=== PATIENT | female | born 1950 | race Caucasian/White ===

== ENCOUNTER 2017-07-14 16:21 | Emergency (ER) | payer MEDICARE, MEDICAID ==
[2017-07-14 20:58] LABS: BASOPHIL % 0.6 % (0-2); PLATELET COUNT 247 x10^3mcL (130-400)
[2017-07-14 21:01] LABS: RED CELL DISTRIBUTION WIDTH 15.5 % (11.5-14.5)
[2017-07-14 21:03] LABS: CALCIUM 9.5 mg/dL (8.5-10.1); CARBON DIOXIDE 27.4 mmol/L (21-32); CHLORIDE SERUM 103 mmol/L (98-107); CREATININE SERUM 0.7 mg/dL (0.6-1.0); GFR1 > 60 mL/min; GLUCOSE SERUM 82 mg/dL (74-106); SODIUM SERUM 141 mmol/L (136-145)
[2017-07-14 21:08] LABS: ALBUMIN 3.8 g/dL (3.4-5.0); ALKALINE PHOSPHATASE 51 U/L (46-116); ALT/SGPT 64 U/L (14-59); AST/SGOT 60 U/L (15-37); BILIRUBIN TOTAL 0.47 mg/dL (0.20-1.00); TOTAL PROTEIN, SERUM 8.1 g/dL (6.4-8.2)
[2017-07-14 21:17] LABS: UA SPECIFIC GRAVITY <=1.005 (1.005-1.035); microscopic required? YES; urine erythrocyte NEGATIVE (NEGATIVE)
[2017-07-14 22:47] VITALS: BP 115/77
== END 2017-07-14 22:47 | disposition home or self-care (01) ==
LOC: ED 16:21
PROVIDERS: Emergency Medicine
DX: R59.0 Localized enlarged lymph nodes (principal); E11.40 Type 2 diabetes mellitus with diabetic neuropathy, unspecified; Z79.84 Long term (current) use of oral hypoglycemic drugs; Z79.899 Other long term (current) drug therapy
CPT/HCPCS: 36415

== ENCOUNTER 2017-09-12 16:26 | Emergency (ER) | payer OTHER, MEDICAID ==
[~2017-09-12] VITALS: Ht 170.2 cm; Wt 72.6 kg
[2017-09-12 19:32] LABS: BASOPHIL % 0.2 % (0-2); PLATELET COUNT 253 x10^3mcL (130-400)
[2017-09-12 19:39] LABS: RED CELL DISTRIBUTION WIDTH 15.4 % (11.5-14.5)
[2017-09-12 19:49] LABS: CALCIUM 8.9 mg/dL (8.5-10.1); CARBON DIOXIDE 23.6 mmol/L (21-32); CHLORIDE SERUM 100 mmol/L (98-107); CREATININE SERUM 0.9 mg/dL (0.6-1.0); GFR1 > 60 mL/min; GLUCOSE SERUM 246 mg/dL (74-106); POTASSIUM SERUM 4.2 mmol/L (3.5-5.1); SODIUM SERUM 135 mmol/L (136-145)
[2017-09-12 19:53] LABS: ALBUMIN 3.8 g/dL (3.4-5.0); ALKALINE PHOSPHATASE 38 U/L (46-116); ALT/SGPT 68 U/L (14-59); AST/SGOT 41 U/L (15-37); BILIRUBIN TOTAL 0.41 mg/dL (0.20-1.00); CHOLESTEROL 178 mg/dL (<200); CHOLESTEROL/HDL RATIO 3.8; HDL CHOLESTEROL 47 mg/dL (40-60); LIPASE 208 IU/L (73-393); T3 TOTAL 1.13 ng/mL; TOTAL PROTEIN, SERUM 7.3 g/dL (6.4-8.2); TRIGLYCERIDES 89 mg/dL (<150)
[2017-09-12 20:12] LABS: FREE T4 0.99 ng/dL (0.76-1.46); FREE THYROXINE INDEX 2.9 ug/dL (1.4-4.5); T4(THYROXINE) 8.7 ug/dL (4.7-13.3)
[2017-09-12 21:15] VITALS: BP 99/66
== END 2017-09-12 21:15 | disposition home or self-care (01) ==
LOC: ED 16:26
PROVIDERS: Specialist
DX: E11.649 Type 2 diabetes mellitus with hypoglycemia without coma (principal); D72.829 Elevated white blood cell count, unspecified; E11.40 Type 2 diabetes mellitus with diabetic neuropathy, unspecified
CPT/HCPCS: 82962; 83880; 84439; J7030

== ENCOUNTER 2018-03-26 10:14 | Emergency (ER) | payer OTHER ==
[~2018-03-26] VITALS: Ht 165.1 cm; Wt 72.1 kg
[~2018-03-26 10:14] MED LIST: ALENDRONATE SOD70 M2 PO; AMA1 PO; ASPIR 8181 MG PO; AZITHROMYCIN250 M1 PO; COZAAR100 MG PO; D3-50001 TAB PO; HYDROCHLOROTH12.5 M2 PO; KEFLEX500 M1 PO; LAC PO; LOP600 PO; LYRICA75 M1 PO; METFORMIN HYD1000 M2 PO; NORCO1 TA2 PO; PREDNISONE2.5 MG PO; PRILOSEC OTC20 M1 PO; SIMVASTATIN20 M1 PO
[2018-03-26 10:18] VITALS: Ht 165.1 cm; Wt 72.1 kg
[2018-03-26 14:12] VITALS: BP 128/81
== END 2018-03-26 14:44 | disposition home or self-care (01) ==
LOC: ED 10:14
DX: R60.0 Localized edema (principal); E13.42 Other specified diabetes mellitus with diabetic polyneuropathy; E78.00 Pure hypercholesterolemia, unspecified; I10 Essential (primary) hypertension; Z72.0 Tobacco use
CPT/HCPCS: 82962

== ENCOUNTER 2018-09-20 10:27 | Inpatient (IN) | payer OTHER ==
[~2018-09-20] VITALS: Ht 162.6 cm; Wt 73.5 kg
[2018-09-20 10:33] VITALS: Ht 162.6 cm; Wt 73.5 kg
[2018-09-20 11:11] LABS: BASOPHIL % 0.5 % (0-2); PLATELET COUNT 278 x10^3mcL (130-400)
[2018-09-20] MEDS ORDERED: FUROSEMIDE20 MG PO (11:20)
[2018-09-20] MEDS ORDERED: TRADJENTA5 M1 PO (11:20)
[2018-09-20 11:22] LABS: CALCIUM 8.7 mg/dL (8.5-10.1); CARBON DIOXIDE 27.9 mmol/L (21-32); POTASSIUM SERUM 3.8 mmol/L (3.5-5.1)
[2018-09-20 11:35] LABS: BILIRUBIN TOTAL 0.35 mg/dL (0.20-1.00)
[2018-09-20 12:54] VITALS: BP 147/68
[2018-09-20 13:33] LABS: CHOLESTEROL/HDL RATIO 4.3; MAGNESIUM 2.2 mg/dL (1.8-2.4); PHOSPHOROUS 2.3 mg/dL (2.5-4.9)
[2018-09-20 13:36] LABS: T3 TOTAL 1.76 ng/mL
[2018-09-20 13:42] LABS: FREE T4 1.11 ng/dL (0.76-1.46); FREE THYROXINE INDEX 2.7 ug/dL (1.4-4.5); T4(THYROXINE) 8.7 ug/dL (4.7-13.3)
[2018-09-20 17:10] VITALS: BP 139/67
[2018-09-20 21:31] VITALS: BP 124/61
[2018-09-21 04:46] VITALS: BP 144/70
[2018-09-21 06:23] LABS: BASOPHIL % 0.8 % (0-2); PLATELET COUNT 264 x10^3mcL (130-400)
[2018-09-21 06:42] LABS: RED CELL DISTRIBUTION WIDTH 17.2 % (11.5-14.5)
[2018-09-21 06:53] LABS: CALCIUM 8.8 mg/dL (8.5-10.1); CARBON DIOXIDE 27.1 mmol/L (21-32); CHLORIDE SERUM 105 mmol/L (98-107); CREATININE SERUM 0.7 mg/dL (0.6-1.0); GFR1 > 60 mL/min; GLUCOSE SERUM 114 mg/dL (74-106); PHOSPHOROUS 3.6 mg/dL (2.5-4.9); POTASSIUM SERUM 4.2 mmol/L (3.5-5.1); SODIUM SERUM 139 mmol/L (136-145)
[2018-09-21 09:30] VITALS: BP 133/67
[2018-09-21 11:05] LABS: UA SPECIFIC GRAVITY >=1.030 (1.005-1.035); microscopic required? YES; urine erythrocyte NEGATIVE (NEGATIVE)
[2018-09-21 11:18] LABS: AMPHETAMINE QUAL UR NONE DETECTED (See below)
[2018-09-21 13:55] VITALS: BP 135/64
[2018-09-21] MEDS ORDERED: LEV500 PO (16:40)
[2018-09-21] MEDS ORDERED: LAC PO (17:04)
== END 2018-09-21 17:30 | disposition home or self-care (01) | DRG 205 ==
LOC: ED 10:27 → DU 11:48
PROVIDERS: Emergency Medicine; Internal Medicine
DX: M94.0 Chondrocostal junction syndrome [Tietze] (principal); N17.0 Acute kidney failure with tubular necrosis; D68.69 Other thrombophilia; N39.0 Urinary tract infection, site not specified; G90.9 Disorder of the autonomic nervous system, unspecified; E83.39 Other disorders of phosphorus metabolism; R55 Syncope and collapse; E11.59 Type 2 diabetes mellitus with other circulatory complications; I10 Essential (primary) hypertension; E78.5 Hyperlipidemia, unspecified; Z79.82 Long term (current) use of aspirin; Z79.84 Long term (current) use of oral hypoglycemic drugs; Z87.891 Personal history of nicotine dependence; Z68.27 Body mass index [BMI] 27.0-27.9, adult
CPT/HCPCS: 82962; 83880; 84439; 85378; J1644; J7030; Q0092

== ENCOUNTER 2019-07-12 10:00 | Inpatient (IN) | payer OTHER ==
[~2019-07-12] VITALS: Ht 160 cm; Wt 76.7 kg
[~2019-07-12 10:00] MED LIST changes: +FUROSEMIDE20 MG PO; +LEV500 PO; +TRADJENTA5 M1 PO
[2019-07-12 10:08] VITALS: Ht 160 cm; Wt 76.7 kg
--- NOTE | 2019-07-12 10:22 | NUR ---
PT BROUGHT IN BY DAUGHTER WITH C/O DIARRHEA AND R ARM PAIN X4 DAYS. AT BEDSIDE PT IS AAOX4. RESPS E/U. SKIN IS PINK, WARM AND DRY. PERRLA. PT PLACED ON MONITOR. BED RAILS UP X1 FOR SAFETY. PT ORIENTED TO ROOM, USE OF CALL PURCELL AND BED IN LOWEST POSITION. PT IS CALM AND COOPERATIVE. PT AMBULATED FROM LOBBY TO ED WITH STEADY GAIT. PT AWAITING MSE.
--- NOTE | 2019-07-12 11:15 | NUR ---
PT ASKED TO GO TO RESTROOM. PT AMBULATED TO RESTROOM AND BACK WITH NO ASSIST AND STEADY GAIT. PT SPEAKING IN FULL SENTANCES. NO NEUROLOGICAL DEFICITS NOTED AT THIS MOMENT.
[2019-07-12 11:31] LABS: BASOPHIL % 0.6 % (0-2); PLATELET COUNT 323 x10^3mcL (130-400)
[2019-07-12 11:32] LABS: RED CELL DISTRIBUTION WIDTH 17.7 % (11.5-14.5)
--- NOTE | 2019-07-12 12:07 | NUR ---
PT RESTING IN A POSITION OF COMFORFT. PT AAOX1. RESPS EVEN AND UNLABORED. CALL LIGHT WITHIN REACH. BED IN LOW POSITION WITH SIDE RAILS UP X2. APPEARS TO BE NO DISTRESS AT THIS TIME. NO CHANGE IN PT STATUS. WILL CONITINUE TO MONITOR. DIXIE AT BEDSIDE.
[2019-07-12 12:18] LABS: ALKALINE PHOSPHATASE 59 U/L (46-116); ALT/SGPT 26 U/L (14-59); AST/SGOT 23 U/L (15-37); BILIRUBIN TOTAL 0.4 mg/dL (0.20-1.00); CALCIUM 8.3 mg/dL (8.5-10.1); CARBON DIOXIDE 20.4 mmol/L (21-32); CHLORIDE SERUM 81 mmol/L (98-107); CREATININE SERUM 0.7 mg/dL (0.6-1.0); GFR1 > 60 mL/min; GLUCOSE SERUM 150 mg/dL (74-106); LIPASE 90 IU/L (73-393); POTASSIUM SERUM 4.2 mmol/L (3.5-5.1); TOTAL PROTEIN, SERUM 7.3 g/dL (6.4-8.2)
[2019-07-12 12:22] LABS: SODIUM SERUM 116 mmol/L (136-145)
--- NOTE | 2019-07-12 12:22 | NUR ---
I RECEIVED A CALL FROM GUSTAVO REGARDING THIS PT NA LEVEL [address] DAWSON
--- NOTE | 2019-07-12 13:01 | NUR ---
PT TRANSFERED TO CT VIA GURNEY IN STABLE CONDITION. AAOX4, RESPS E/U, SKIN IS PINK WARM AND DRY.
--- NOTE | 2019-07-12 13:05 | NUR ---
HAND-OFF REPORT TO ISAI LEES TO ASSUME CARE
--- NOTE | 2019-07-12 13:20 | NUR ---
PT RETURNED FROM CT. AWAKE AND ALERT, RESP E/U, NAD NOTED. DAUGHTER REMAINS AT BEDSIDE.
--- NOTE | 2019-07-12 14:38 | NUR ---
ISAI LEES AMBULATED PT TO ED RESTROOM. AMBULATED WITH STEADY GAIT, NAD NOTED.
--- NOTE | 2019-07-12 15:16 | NUR ---
DR DAWSON AT BEDSIDE TO SPEAK WITH PT AND DAUGHTER REGARDING PLAN OF CARE FOR ADMISSION.
[2019-07-12] MEDS ORDERED: COZAAR100 MG PO (15:26)
[2019-07-12] MEDS ORDERED: NEU300 PO ×2 (15:27→15:28)
[2019-07-12] MEDS ORDERED: PENTOXIFYL XR400 M1 PO (15:28)
[2019-07-12] MEDS ORDERED: LOP600 PO (15:29)
[2019-07-12] MEDS ORDERED: HCTZ/LISINOPRIL1 TAB PO (15:30)
[2019-07-12] MEDS ORDERED: LOVASTATIN20 MG PO (15:31)
--- NOTE | 2019-07-12 16:30 | NUR ---
PT SITTING UP IN GURNEY COMFORTABLY. RESP E/U, NAD NOTED. CALL LIGHT IN REACH.
--- NOTE | 2019-07-12 16:36 | NUR ---
IV MAINTENANCE FLUIDS INITIATED PER ORDER, PT VERBALIZED UNDERSTANDING OF MEDICATION PRIOR TO ADMINISTRATION. PT CURRENTLY REPORTING HEADACHE PAIN. MADE AWARE.
--- NOTE | 2019-07-12 18:05 | NUR ---
ATTEMPTED TO CALL REPORT TO [employer]. PER SENIOR RADIATION THERAPIST, WILL HAVE HER CALL BACK.
--- NOTE | 2019-07-12 18:23 | NUR ---
RECEIVED REPORT FROM CHRISTEL ALEX IN ED. AWAITING PATIENT ARRIVAL TO FLOOR.
--- NOTE | 2019-07-12 18:25 | NUR ---
REPORT CALLED TO ISAI DOBSON TO ASSUME CARE FOR PT.
--- NOTE | 2019-07-12 18:39 | NUR ---
RECEIVED PT VIA GUERNEY FROM E/D, ACCOMPANIED BY TRANSPORTER. PT A/A/O X 4, CALM, COOPERATIVE; C/O INTERMITTENT THROBBING H/A /10; ON SEIZURE PRECAUTIONS FOR NA+ 116; WEARS GLASSES (W/ PT). GENERALIZED WEAKNESS (R > L), ABLE TO AMBULATE BY HERSELF; FALL RISK PROTOCOL IN PLACE; NOTED MISSING THUMB (SINCE 15Y AGO). DENIES CHEST PAIN OR DISCOMFORT AT THIS TIME, C/O MILD DIZZINESS. BRYN RADIAL AND PEDAL PULSES PRESENT, +1 PITTING EDEMA TO BLE, CAP REFILL < 3 SECS, SCD BY BEDSIDE. NO ACUTE RESPIRATORY DISTRESS NOTED. ABD SOFT, ROUND, NON-TENDER, NORMOACTIVE BOWEL SOUNDS X 4 QUADS, LAST BM 07/12/19, DIARRHEA; PT W/ FULL UPPER AND PARTIAL LOWER DENTURES. IV SITE RH 20G, CDI. ORIENTED PT TO ROOM, BED CONTROLS, CALL LIGHT SYSTEM. SIDE RAILS UP X 2, BED IN LOW POSITION. WILL ENDORSE TO ISAI DOBSON.
--- NOTE | 2019-07-12 18:39 | NUR ---
RECEIVED PATIENT FROM ED VIA GUERNEY. PATIENT AMBULATED TO BED ALONE. GAIT STEADY. VITALS TAKEN AND STABLE (SEE DOCUMENTATION). PT ON ROOM AIR WITH NO DISTRESS NOTED. ORIENTED PATIENT TO ROOM AND EDUCATED ON THE USE OF CALL LIGHT FOR ASSISTANCE. IV TO RT HAND IS PATENT AND INTACT. NO REDNESS OR PAIN. PT C/O HEADACHE 06/30 UNRELIEVED BY MOTRIN GIVEN IN ED. ALL QUESTIONS AND CONCERNS ADDRESSED.
[2019-07-12 19:04] LABS: CHOLESTEROL/HDL RATIO 4.5
[2019-07-12 19:10] LABS: T3 TOTAL 0.95 ng/mL
[2019-07-12 19:14] LABS: FREE T4 1.27 ng/dL (0.76-1.46); FREE THYROXINE INDEX 3.5 ug/dL (1.4-4.5); T4(THYROXINE) 10.4 ug/dL (4.7-13.3)
[2019-07-12 19:58] LABS: CARBON DIOXIDE 23.4 mmol/L (21-32); CHLORIDE SERUM 86 mmol/L (98-107); CREATININE SERUM 0.7 mg/dL (0.6-1.0); GFR1 > 60 mL/min; GLUCOSE SERUM 110 mg/dL (74-106); POTASSIUM SERUM 3.5 mmol/L (3.5-5.1)
--- NOTE | 2019-07-12 19:59 | NUR ---
ENDORSED ALL CARE TO RESOURCE NURSE
[2019-07-12 20:02] LABS: SODIUM SERUM 122 mmol/L (136-145)
[2019-07-12 20:08] VITALS: BP 146/67
[2019-07-12 21:02] VITALS: BP 126/56
--- NOTE | 2019-07-12 22:31 | NUR ---
Awake and verbally responsive. No respiratory distress noted on room air. c/o headache, tylenol given as ordered with relief. Kept comfortable. Call light within reach. Will cont.to monitor.
--- NOTE | 2019-07-13 04:24 | NUR ---
Afebrile. No significant change in condition noted. Denies pain. In no apparent distress.
[2019-07-13 05:30] VITALS: BP 116/58
[2019-07-13 07:14] LABS: CALCIUM 7.7 mg/dL (8.5-10.1); CARBON DIOXIDE 24.3 mmol/L (21-32); CHLORIDE SERUM 91 mmol/L (98-107); CREATININE SERUM 0.7 mg/dL (0.6-1.0); GFR1 > 60 mL/min; GLUCOSE SERUM 128 mg/dL (74-106); PHOSPHOROUS 3.2 mg/dL (2.5-4.9); POTASSIUM SERUM 3.6 mmol/L (3.5-5.1); SODIUM SERUM 126 mmol/L (136-145)
[2019-07-13 07:21] LABS: BASOPHIL % 0.7 % (0-2); PLATELET COUNT 298 x10^3mcL (130-400)
--- NOTE | 2019-07-13 07:30 | NUR ---
RECEIVED PT FROM S[employer]VERWARE CLEANER. PT AWAKE, ALERT. A/OX4. PT ON ROOM AIR WITH NO RESP DISTRESS NOTED. LUNGS CTA. IV ACCESS RH CDI INFUSING NS AT 100ML/HR. PERIPHERAL PULSES PALPABLE, NO EDEMA NOTED. PT NOTED TO HAVE GENERALIZED WEAKNESS. PT DENIES ANY PAIN, HEADACHE OR CHEST PAIN AT THIS TIME. SAFETY MEASURES IN PLACE, BED LOW AND LOCKED. CALL LIGHT WITHIN REACH.
[2019-07-13 08:30] VITALS: BP 105/46
[2019-07-13 10:26] LABS: rbc morphology (normal/abnorm) ABNORMAL (NORMAL)
--- NOTE | 2019-07-13 12:47 | NUR ---
PT COMPLAINING OF SLIGHT HEADACHE. PT DOES NOT WANT TYLENOL OR NORCO FOR PAIN. PT PREFERS MOTRIN. DR JOEL CHAU.
--- NOTE | 2019-07-13 13:09 | NUR ---
MOTRIN ADMINISTERED FOR HEADACHE 01/28. PT STATES PAIN IS "NOT TOO MUCH". FAMILY AT BEDSIDE. WILL MONITOR.
--- NOTE | 2019-07-13 14:40 | NUR ---
PT RESTING WITH NO DISCOMFORT NOTED. PT REPORTS RELIEF AFTER MOTRIN ADMINISTRATION. PT IN BED KNITTING. WILL MONITOR.
--- NOTE | 2019-07-13 16:00 | NUR ---
ALL NEEDS MET AT THIS TIME. FAMILY AT BEDSIDE.
[2019-07-13 16:29] LABS: CALCIUM 8.6 mg/dL (8.5-10.1); CARBON DIOXIDE 21.3 mmol/L (21-32); CHLORIDE SERUM 97 mmol/L (98-107); CREATININE SERUM 0.9 mg/dL (0.6-1.0); GFR1 > 60 mL/min; GLUCOSE SERUM 123 mg/dL (74-106); POTASSIUM SERUM 4.1 mmol/L (3.5-5.1); SODIUM SERUM 132 mmol/L (136-145)
[2019-07-13 16:38] VITALS: BP 106/54
--- NOTE | 2019-07-13 18:25 | NUR ---
PT STABLE AT THIS TIME. ALL NEEDS MET THROUGHOUT SHIFT. WILL CONTINUE TO MONITOR AND ENDORSE CARE TO GLASS INSPECTOR.
--- NOTE | 2019-07-13 19:35 | NUR ---
RECEIVED REPORT FROM AM NURSE. PT LAYING DOWN IN BED WITH FAMILY AT BEDSIDE. PT AAOX4, FOLLOW COMMANDS. ABLE TO MAKE NEEDS KNOWN. MED-LIBBY. DENIES CP/PRESSURE AT THIS TIME. PALPABLE PULSES TO BLE. TRACE EDEMA TO LLE NOTED. LUNG SOUNDS CTA. BREATHING EVEN AND UNLABORED ON RA. NO ACUTE DISTRES NOTED. NO SOB NOTED. ABD SOFT AND NONDISTENDED. ACTIVE BS X4 QUAD. DENIES N/V/D. VOIDS FREELY BRP. GENERALIZED WEAKNESS. AMBULATORY. IV TO RH INFUSING NS AT 50ML/HR. SITE FREE FROM REDNESS AND SWELLING. BED AT LOWEST SETTING. SIDE RAILS X2 UP. CALL LIGHT WITHING REACH. WILL CONTINUE TO MONITOR.
[2019-07-13 22:28] VITALS: BP 136/50
[2019-07-13 23:31] LABS: UA SPECIFIC GRAVITY <=1.005 (1.005-1.035); microscopic required? YES; urine erythrocyte NEGATIVE (NEGATIVE)
--- NOTE | 2019-07-14 00:11 | NUR ---
PT LAYIND DOWN IN BED WITH EYES CLOSED. BREATHING EVEN AND UNLABORED ON RA. NO ACUTE DISTRESS NOTED. BED AT LOWEST SETTING. SIDE RAILS X2 UP. CALL LIGHT WITHING REACH.
--- NOTE | 2019-07-14 00:58 | NUR ---
UA CAME BACK POSITIVE. DR YUN MADE AWARE. NO NEW ORDERS RECEIVED.
--- NOTE | 2019-07-14 05:11 | NUR ---
PT SLEPT AT INTERVALS THROGHOUT THE NIGHT. BREATHING EVEN AND UNLABORED ON RA. NO ACUTE DISTRESS NOTED. NO SIGNIFICANT CHANGE DURING SHIFT. ALL NEEDS ASSESSED AND ATTENDED TO. IV TO RH INFUSING NS AT 50 ML/HR. SITE FREE FROM REDNESS AND SWELLING. BED AT LOWEST SETTING. SIDE RAILS X2 UP. CALL LIGHT WITHING REACH. WILL ENDORSE CARE TO AM NURSE.
[2019-07-14 05:49] VITALS: BP 126/48
[2019-07-14 07:00] LABS: PLATELET COUNT 364 x10^3mcL (130-400)
[2019-07-14 07:07] LABS: CALCIUM 8.9 mg/dL (8.5-10.1); CARBON DIOXIDE 22.7 mmol/L (21-32); CHLORIDE SERUM 99 mmol/L (98-107); CREATININE SERUM 0.8 mg/dL (0.6-1.0); GFR1 > 60 mL/min; GLUCOSE SERUM 130 mg/dL (74-106); MAGNESIUM 2.3 mg/dL (1.8-2.4); PHOSPHOROUS 3.9 mg/dL (2.5-4.9); POTASSIUM SERUM 3.8 mmol/L (3.5-5.1); SODIUM SERUM 137 mmol/L (136-145)
[2019-07-14 07:29] LABS: RED CELL DISTRIBUTION WIDTH 18.1 % (11.5-14.5)
--- NOTE | 2019-07-14 07:30 | NUR ---
ENDORSED CARE TO ISAI MCNAMARA.
--- NOTE | 2019-07-14 07:43 | NUR ---
A+OX4, NO RESPRIATORY DISTRESS NOTED, MEDSURG, PULSES MODERATEA AND EQUAL BRYN, EDEMA LLE, LUNG SOUNDS CTA, TOELRATING RA, BOWEL SOUNDS ACTIVE, VOIDING FREELY, GENERALIZED WEAKNESS, AMBULATORY, SKIN INTACT, IV IN R HAND WITH NS @ 80 ML/HR, SITE WNL.
[2019-07-14 09:13] VITALS: BP 119/53
--- NOTE | 2019-07-14 09:17 | NUR ---
PT RESTING IN BED, NO RESPRIATORY DISTRESS NOTED, DENIES PAIN, DAUGHTER AT BEDSIDE, CALL LIGHT WITHIN REACH.
--- NOTE | 2019-07-14 11:57 | NUR ---
PT RESTING IN BED, NO RESPIRATORY DISTRESS NOTED, DENIES PAIN, CALL LIGHT WITHIN REACH.
[2019-07-14 12:43] VITALS: BP 117/60
--- NOTE | 2019-07-14 13:05 | NUR ---
Initial Nutrition Assessment: Maru Palencia [id number] Dx: Abdominal pain, diarrhea and hyponatremia PMHx: HTN,DM,Hyperlipidemia and Neuropathy PSHx: Left groin abscess I and D Labs: (07/14) BH, H/H:11.1/34L, A1c:8.5 Meds: Aspirin, Cozaar, Fosamax, Humulin, Lopid, Neurontin, [place], NS IV, Tylenol, Vitamin D, Zofran Diet: CCHO PO Intake: (07/13) B:20% L:20% D:90% (07/14) B:100% Ht: 63in, 5'3" Wt: 169#, 76.657kg BMI:29.9kg/m2 (overweight) Bed scale: unable to weigh due to pt sitting up in a chair eating lunch IBW:115#, 52kg %IBW:147% UBW: 169# per pt Age: 69 y/o female Food Allergies: NKFA Skin:intact Eloy: 19 Edema: None GI:loose stools per RN assesment 07/14. Last BM: 07/13 Nursing Trigger: N/V/D>3days Per H&P, presented to the ED with c/o diarrhea for the past week, with reported episodes of loose stools between 6-7x/day. Pt with reported decreased intake of solid food for the past week but drank gatorade. Per progress note 07/13, sodium 126. NS changed from 100ml/hr to 50ml/hr. CBC ordered: pending. Pt reports to feeling better with no loose stools overnight. Pt wanted to go teresita but explained risk of going home with low Na. Pt agreed to stay. During visit, observed patient siting up in a chair eating her lunch. Pt's son helped translate. Pt reports to having a good appetite with some loose stools, but improved as compared to the previous day. Problem with: N/V/C: no D: loose stools, improving per pt Problems with: Chewing/Swallowing: No Current appetite: Good Recent wt change:no %wt change:0% Vitamin/Supplement use: No Special diet at home: regular Physical activity:no Nutrition education given (specify specific nutrition education and handout given): High fiber nutrition therapy in Bahamian. Went over what foods to include when yo u have diarrhea and importance of staying hydrated. Food-drug interactions? [place] Education given: verbal diet education on how pain medication can cause constipation Estimated Nutritional Needs Based on ideal body weight 52kg Energy: 1300-1560kcal/d (25-30kcal/kg for maintenance) Protein:52-62g/d (1-1.2g/kg for geriatric maintenanc) Fluid:1560-1820ml/d (30-35ml/kg for diarrhea) or per doctor Nutrition Diagnosis 1. Altered GI function related to gastroenteritis as evidenced by loose stools. 2. Altered nutrition related labs related to endocrine dysfunction as evidenced by A1c:8.5. Intervention 1. Recommend continue with CCHO diet. Monitor/Evaluate Goal: PO intake at least 75% of estimated needs Monitor: PO intake, Labs, GI function F/U in 3-5 days as moderate risk:07/17-
--- NOTE | 2019-07-14 13:07 | NUR ---
1. Recommend continue with CCHO diet.
--- NOTE | 2019-07-14 13:35 | NUR ---
PT SITTING IN CHAIR AT BEDSIDE, NO RESPRIATORY DISTRESS NOTED, DENIES PAIN, DENIES NAUSEA, CALL LIGHT WITHIN REACH. FAMILY AT BEDSIDE.
[2019-07-14 15:05] VITALS: BP 117/60
--- NOTE | 2019-07-14 15:53 | NUR ---
PT AND SON GIVEN DC INSTRUCTIONS, VERBALIZED UNDERSTANDING, IV REMOVED FROM R HAND WITH CATHETER INTACT, PT OFF UNIT AMBULATING INDEPENDENTLY WITH ALL BELONGINGS ESCORTED BY DEPUTY SHERIFF/INVESTIGATOR AND SON.
== END 2019-07-14 15:51 | disposition home or self-care (01) | DRG 392 ==
LOC: ED 10:00 → MU 17:01
PROVIDERS: Emergency Medicine; ADMIT General Practice
DX: K52.9 Noninfective gastroenteritis and colitis, unspecified (principal); E87.1 Hypo-osmolality and hyponatremia; E11.65 Type 2 diabetes mellitus with hyperglycemia; E78.5 Hyperlipidemia, unspecified; D50.9 Iron deficiency anemia, unspecified; Z79.82 Long term (current) use of aspirin; Z68.29 Body mass index [BMI] 29.0-29.9, adult; Z87.891 Personal history of nicotine dependence; Z79.84 Long term (current) use of oral hypoglycemic drugs
CPT/HCPCS: 82962; 84439; 87046; 87046-59; G0378; J7030; Q0092